=== PATIENT | female | born 1995 | race Two or more races ===

== ENCOUNTER 2019-03-26 08:04 | Emergency (ER) | payer BC ==
[~2019-03-26] VITALS: Ht 149.9 cm; Wt 56.0 kg
[2019-03-26] MEDS ORDERED: BIRTH CONTROL PO (09:09)
[2019-03-26] MEDS ORDERED: BIOTIN PO (09:09)
[2019-03-26] MEDS ORDERED: METH4TAB2 PO (09:19)
--- NOTE | 2019-03-26 09:22 | NUR ---
BREAK RN NOTE: pt resting on gurney, a&o, resps even and unlabored. bp and spo2 monitors attached. call light in reach. pt reports sx improved since arrival.
[2019-03-26 10:10] VITALS: BP 118/82
== END 2019-03-26 10:12 | disposition home or self-care (01) ==
LOC: ED 09:02
DX: L50.6 Contact urticaria (principal)
CPT/HCPCS: 99283; J7512

== ENCOUNTER 2019-03-29 10:40 | Emergency (ER) | payer BC ==
[~2019-03-29] VITALS: Ht 149.9 cm; Wt 56.9 kg
[~2019-03-29 10:40] MED LIST: BIOTIN PO; BIRTH CONTROL PO; METH4TAB2 PO
[2019-03-29 11:05] VITALS: BP 109/45
[2019-03-29] MEDS ORDERED: NEOSPORIN OINT. PKT 1 PACKET ONE ×2 (11:29→11:30)
== END 2019-03-29 11:59 | disposition home or self-care (01) ==
LOC: ED 11:48
DX: S61.213A Laceration without foreign body of left middle finger without damage to nail, initial encounter (principal); W26.9XXA Contact with unspecified sharp object(s), initial encounter; Y93.89 Activity, other specified; Y92.009 Unspecified place in unspecified non-institutional (private) residence as the place of occurrence of the external cause; Y99.8 Other external cause status
CPT/HCPCS: 29130; 99283